=== PATIENT | female | born 1945 | race Caucasian/White ===

== ENCOUNTER 2023-06-07 07:43 | Day surgery (SDC) | payer MEDICARE ==
[2023-06-01 12:32] LABS: BASOPHILS % (AUTO) 0.5 % (0-1); EOSINOPHILS # (AUTO) 0.2 X10'3 (0-0.9); EOSINOPHILS % (AUTO) 2.6 % (0-6); LYMPHOCYTES # (AUTO) 1.8 X10'3 (1.1-4.8); LYMPHOCYTES % (AUTO) 29.3 % (21-51); MEAN CORPUSCULAR HEMOGLOBIN 30.9 PG (27.0-31.0); MEAN CORPUSCULAR HGB CONC 33.7 g/dL (33.0-36.5); MEAN CORPUSCULAR VOLUME 91.7 FL (78-98); MEAN PLATELET VOLUME 9.1 FL (7.4-10.4); MONOCYTES # (AUTO) 0.5 X10'3 (0-0.9); MONOCYTES % (AUTO) 8.9 % (2-12); NEUTROPHILS # (AUTO) 3.6 X10'3 (1.8-7.7); NEUTROPHILS % (AUTO) 58.7 % (42-75); PRE OP HEMATOCRIT 39.1 % (35.0-45.0); PRE OP HEMOGLOBIN 13.2 g/dL (12.0-16.0); PRE OP PLATELET COUNT 269 X10'3 (140-440); PRE OP WHITE BLOOD COUNT 6.1 10'3 (4.8-10.8); RED BLOOD COUNT 4.27 X10'6 (4.20-5.60); RED CELL DISTRIBUTION WIDTH 14.2 % (11.5-14.5)
[2023-06-01 12:41] LABS: ALBUMIN 3.8 G/DL (3.4-5.0); ALBUMIN/GLOBULIN RATIO 1.2 (1.1-1.5); ALKALINE PHOSPHATASE 73 IU/L (46-116); BLOOD UREA NITROGEN 22 MG/DL (7-18); BUN/CREATININE RATIO 29.3 (10.0-20.0); CALCIUM 9.4 MG/DL (8.5-10.1); CHLORIDE 105 MMOL/L (99-107); CREATININE 0.75 MG/DL (0.40-0.90); PRE OP ALT 28 U/L (30-65); PRE OP ANION GAP 8 (8-16); PRE OP AST 17 U/L (10-37); PRE OP BILIRUB, TOTAL 0.3 MG/DL (0.0-1.0); PRE OP GLUCOSE 104 MG/DL (70-104); PRE OP POTASSIUM 4.4 MMOL/L (3.4-5.1); PRE OP SODIUM 139 MMOL/L (135-145); TOTAL CARBON DIOXIDE 26.2 MMOL/L (24-32); TOTAL PROTEIN 6.9 G/DL (6.4-8.2); eGFR 75 ML/MIN
[2023-06-07] VITALS (25 sets, daily range): BP systolic 149–190; BP diastolic 68–89; PULSE 65–78; RESP 10–16; TEMP 98.3; O2SAT 92–100
[~2023-06-07] VITALS: Ht 172.7 cm; Wt 91.2 kg
[~2023-06-07 07:43] MED LIST: ACETYL CARNITINE; ALOE VERA; COQ10; D3; DULO60CA65 PO; GINKO; HAWTHORNE; IODINE; LIDOcaine 1% W/epiNEPHrine 1:100,000 20ml vial ONE; LIONS MANE; MAGNESIUM; MELO-102 PO; OLIVE LEAF; POTASSIUM; PROBIOTIC; QUERCITIN; RED YEAST; TUMERIC; ZINC; [UNRECOGNIZED DRUG - OTHER]; [UNRECOGNIZED DRUG - OTHER]; [UNRECOGNIZED DRUG - OTHER]; cocaine 4% topical solution 4ml bottle ONE; famotidine 20mg tablet PO ONE; mupirocin 2% ointment 22GM ONE; ringers solution, lacted 1,000 ML IV SCH; tranexamic acid 100mg/ml inj. ONE; tranexamic acid inj. 1,000 MG in normal saline IV soln 100ML IV ONE
[2023-06-07] MEDS: oxymetazoline 15 ML nasal spray NS SCH ×2 (09:26→10:59)
[2023-06-07] MEDS ORDERED: epiNEPHrine 1 mg/ml 30ml MDV ONE (09:54)
[2023-06-07] MEDS ORDERED: morphine 4 MG/ML inj SYRINge IV PRN (10:05)
[2023-06-07] MEDS ORDERED: ondansetron/PF 4mg/2ml inj IV PRN (10:05)
[2023-06-07] MEDS ORDERED: ringers solution, lacted 1,000 ML IV SCH (10:05)
[2023-06-07] MEDS ORDERED: fentaNYL/PF 50MCG/1 ML 2ML syringe IV PRN (10:05)
[2023-06-07] MEDS ORDERED: morphine 2 MG/ML inj. syringe IV PRN (10:05)
[2023-06-07] MEDS ORDERED: LIDOcaine 2% (20mg/ml) 5ml vial ONE (10:18)
[2023-06-07] MEDS ORDERED: fentaNYL/PF 50MCG/1 ML 2ML syringe ONE (10:18)
[2023-06-07] MEDS ORDERED: midazolam 1 mg/ML 2ml injection ONE (10:18)
[2023-06-07] MEDS ORDERED: propofol inj 20 ML IV ONE (10:18)
[2023-06-07] MEDS ORDERED: ondansetron/PF 4mg/2ml inj ONE (10:18)
[2023-06-07] MEDS ORDERED: desflurane 240ml liquid inh. IH ONE (10:25)
[2023-06-07] MEDS ORDERED: dexamethasone sod phosphate 10mg/ml inj ONE (10:25)
[2023-06-07] MEDS ORDERED: ceFAZolin 1000mg inj ONE ×2 (10:36)
[2023-06-07] MEDS ORDERED: cefTAZidime 1gm inj ONE (10:39)
[2023-06-07] MEDS ORDERED: labetalol 20mg/4ml (5mg/ml) syringe IV ONE (10:40)
[2023-06-07] MEDS: labetalol 20mg/4ml (5mg/ml) syringe IV PRN ×3 (12:10→12:22)
[2023-06-07] MEDS: fentaNYL/PF 50MCG/1 ML 2ML syringe IV PRN ×2 (12:18→13:30)
[2023-06-07] MEDS ORDERED: salt irrigation nasal spray 45 ML SPRAY NS PRN (12:35)
[2023-06-07] MEDS ORDERED: mupirocin 2% nasal ointment 1gm UD NS ONE (12:35)
[2023-06-07] MEDS: hydrALAZINE 20mg/ml inj. IV PRN ×2 (13:17→13:33)
== END 2023-06-07 13:59 | disposition home or self-care (01) ==
LOC: PAS 07:43
PROVIDERS: ATTEND Otolaryngology
DX: J32.8 Other chronic sinusitis (principal); D16.4 Benign neoplasm of bones of skull and face; G47.30 Sleep apnea, unspecified; F32.A Depression, unspecified; M19.90 Unspecified osteoarthritis, unspecified site; Z96.643 Presence of artificial hip joint, bilateral; Z98.890 Other specified postprocedural states; Z91.018 Allergy to other foods; Z87.891 Personal history of nicotine dependence; Z88.2 Allergy status to sulfonamides; Z79.899 Other long term (current) drug therapy
CPT/HCPCS: 31253; 36415; 61782; 80053; 82948; 85025; 85576; A6402; C2625; J0171; J0360; J0690; J0713; J1100; J2250; J2270; J2405; J2704; J3010; J3490; J7030; J7050; J7120; Z7506; Z7508; Z7512; 88304; 88311; A4618; A6449; A7000

== ENCOUNTER 2024-05-28 07:13 | Day surgery (SDC) | payer MEDICARE ==
[2024-05-22 11:06] LABS: BASOPHILS % (AUTO) 0.5 % (0-1); EOSINOPHILS # (AUTO) 0.2 X10'3 (0-0.9); LYMPHOCYTES # (AUTO) 1.8 X10'3 (1.1-4.8); LYMPHOCYTES % (AUTO) 34.2 % (21-51); MEAN CORPUSCULAR HEMOGLOBIN 30.2 PG (27.0-31.0); MEAN CORPUSCULAR VOLUME 91.5 FL (78-98); MEAN PLATELET VOLUME 8.5 FL (7.4-10.4); MONOCYTES # (AUTO) 0.4 X10'3 (0-0.9); MONOCYTES % (AUTO) 7.6 % (2-12); NEUTROPHILS # (AUTO) 2.9 X10'3 (1.8-7.7); NEUTROPHILS % (AUTO) 54.7 % (42-75); PRE OP HEMATOCRIT 40.8 % (35.0-45.0); PRE OP HEMOGLOBIN 13.5 g/dL (12.0-16.0); PRE OP PLATELET COUNT 246 X10'3 (140-440); PRE OP WHITE BLOOD COUNT 5.3 10'3 (4.8-10.8); RED BLOOD COUNT 4.46 X10'6 (4.20-5.60); RED CELL DISTRIBUTION WIDTH 14.1 % (11.5-14.5)
[2024-05-22 11:20] LABS: ALBUMIN 3.9 G/DL (3.4-5.0); ALBUMIN/GLOBULIN RATIO 1.2 (1.1-1.5); ALKALINE PHOSPHATASE 75 IU/L (46-116); CALCIUM 9.1 MG/DL (8.5-10.1); CHLORIDE 105 MMOL/L (99-107); CREATININE 0.81 MG/DL (0.40-0.90); PRE OP ALT 29 U/L (30-65); PRE OP ANION GAP 4 (8-16); PRE OP AST 32 U/L (10-37); PRE OP BILIRUB, TOTAL 0.5 MG/DL (0.0-1.0); PRE OP GLUCOSE 102 MG/DL (70-104); PRE OP POTASSIUM 4.6 MMOL/L (3.4-5.1); PRE OP SODIUM 137 MMOL/L (135-145); TOTAL CARBON DIOXIDE 28.2 MMOL/L (24-32); TOTAL PROTEIN 7.2 G/DL (6.4-8.2); eGFR 69 ML/MIN
[2024-05-22 11:23] LABS: BLOOD UREA NITROGEN 20 MG/DL (7-18); BUN/CREATININE RATIO 24.7 (10.0-20.0)
[~2024-05-28] VITALS: Ht 175.3 cm; Wt 92.0 kg
[2024-05-28] VITALS (13 sets, daily range): BP systolic 149–175; BP diastolic 76–89; PULSE 62–75; RESP 10–18; TEMP 97.4; O2SAT 97–99
[2024-05-28] MEDS: famotidine 20mg tablet PO ONE (05:30)
[2024-05-28] MEDS: cefazolin 2gm/D5W 100mL 100 ML IV ONE (05:30)
[~2024-05-28 07:13] MED LIST changes: -ACETYL CARNITINE; -ALOE VERA; -COQ10; -D3; +FEXO-25 PO; -GINKO; -HAWTHORNE; -IODINE; -LIDOcaine 1% W/epiNEPHrine 1:100,000 20ml vial ONE; +LOSA50TA64 PO; -MAGNESIUM; -OLIVE LEAF; -QUERCITIN; -RED YEAST; +SUPPORT; -[UNRECOGNIZED DRUG - OTHER]; -cocaine 4% topical solution 4ml bottle ONE; -famotidine 20mg tablet PO ONE; -mupirocin 2% ointment 22GM ONE; -tranexamic acid 100mg/ml inj. ONE; -tranexamic acid inj. 1,000 MG in normal saline IV soln 100ML IV ONE
[2024-05-28] MEDS ORDERED: LIDOcaine 2% (20mg/ml) 5ml vial ONE (07:15)
[2024-05-28] MEDS ORDERED: propofol 10mg/ml 20ml vial IV ONE (09:21)
[2024-05-28] MEDS ORDERED: fentaNYL/PF 50MCG/1 ML 2ML syringe ONE (09:24)
[2024-05-28] MEDS: BUPIVAcaine/PF 2.5mg/ml (0.25%) 10ml vial ONE (09:53)
[2024-05-28] MEDS ORDERED: BUPIVAcaine/PF 2.5mg/ml (0.25%) 10ml vial ONE (10:08)
[2024-05-28] MEDS ORDERED: HYDROmorphone/PF 0.2 MG/ML SYRINGE IV PRN (10:40)
[2024-05-28] MEDS ORDERED: fentaNYL/PF 50MCG/1 ML 2ML syringe IV PRN ×2 (10:40→10:45)
[2024-05-28] MEDS ORDERED: ringers solution, lacted 1,000 ML IV SCH (10:40)
[2024-05-28] MEDS ORDERED: meperidine/PF 25mg/ml syringe IV PRN (10:40)
[2024-05-28] MEDS ORDERED: ondansetron/PF 4mg/2ml inj IV PRN (10:40)
[2024-05-28] MEDS: meperidine/PF 25mg/ml syringe IV PRN (10:48)
[2024-05-28] MEDS: hydrALAZINE 20mg/ml inj. IV PRN (10:48)
== END 2024-05-28 11:46 | disposition home or self-care (01) ==
LOC: PRE-OP 07:13
PROVIDERS: ATTEND Orthopaedic Surgery Hand Surgery
DX: M18.11 Unilateral primary osteoarthritis of first carpometacarpal joint, right hand (principal); I10 Essential (primary) hypertension; I25.10 Atherosclerotic heart disease of native coronary artery without angina pectoris; E78.00 Pure hypercholesterolemia, unspecified; E03.9 Hypothyroidism, unspecified; E66.9 Obesity, unspecified; G47.33 Obstructive sleep apnea (adult) (pediatric); F32.A Depression, unspecified; M19.90 Unspecified osteoarthritis, unspecified site; Z87.891 Personal history of nicotine dependence; Z79.899 Other long term (current) drug therapy; Z98.890 Other specified postprocedural states; Z68.29 Body mass index [BMI] 29.0-29.9, adult; Z88.2 Allergy status to sulfonamides; Z80.9 Family history of malignant neoplasm, unspecified
CPT/HCPCS: 25310; 25447; 36415; 80053; 82948; 85025; 93005; A4215; A4618; A6258; A6449; A7000; J0360; J0690; J2001; J2175; J2405; J2704; J3010; J3490; J7030; J7120; Z7506; Z7512; Z7610